=== PATIENT | male | born 1940 | race Caucasian/White ===

== ENCOUNTER 2018-07-22 17:57 | Observation (INO) | payer OTHER ==
[2018-07-22 18:40] LABS: Absolute Lymphocytes (CBC) 0.7 K/uL (0.7-4.9); Absolute Monocytes 1.1 K/uL (0.1-1.3); Absolute Neutrophil 9.1 K/uL (1.8-8.0); Basophils % 0.5 % (0-1.3); Eosinophils % 1.3 % (0-4.4); Hematocrit 56.2 % (39.6-49.0); MPV 9.8 fL (7.6-11.3); Monocytes % 9.5 % (3.3-12.3); RBC Red Blood Cell Count 5.76 M/uL (4.33-5.43)
[2018-07-22 19:15] LABS: Albumin 3.7 g/dL (3.4-5.0); Bilirubin Direct 0.3 mg/dL (0-0.2); Potassium 3.7 mmol/L (3.5-5.1)
[2018-07-22] MEDS ORDERED: MORPHINE 4 MG/ML SYR ONE (19:40)
[2018-07-22] MEDS ORDERED: ONDANSETRON 4 MG/2 ML VIAL ONE (19:41)
[2018-07-22] MEDS ORDERED: NA CHLORIDE 0.9% 500 ML ONE (19:41)
[2018-07-22 22:52] LABS: Protime INR 2.66
--- NOTE | 2018-07-22 23:04 | ER ---
Nurse's Notes [facility] Name: Cristian Le Age: 77 yrs Sex: Male : 1940 Arrival Date: 07/22/2018 Time: 18:02 Bed 17 Private MD: Diagnosis: Acute appendicitis Presentation: 07/22 18:13 Presenting complaint: Patient states: Sent by PCP to be evaluated for appendicitis. aj Care prior to arrival: None. 18:13 Method Of Arrival: Ambulatory aj 18:13 Acuity: LUANN 3 aj 18:30 Transition of care: patient was not received from another setting of care. Onset of sv symptoms was July 20, 2018. Risk Assessment: Do you want to hurt yourself or someone else? Patient reports no desire to harm self or others. Initial Sepsis Screen: Does the patient meet any 2 criteria? No. Patient's initial sepsis screen is negative. Does the patient have a suspected source of infection? No. Patient's initial sepsis screen is negative. Triage Assessment: 18:14 General: Appears in no apparent distress. comfortable, Behavior is calm, cooperative, aj appropriate for age. Pain: Complains of pain in right lower quadrant. Neuro: Level of Consciousness is awake, alert, obeys commands, Oriented to person, place, time, situation, Appropriate for age. Respiratory: Airway is patent Respiratory effort is even, unlabored, Respiratory pattern is regular, symmetrical. GI: Reports lower abdominal pain. Derm: Skin is intact, is healthy with good turgor, Skin is pink, warm \T\ dry. normal. Historical: - Allergies: 18:14 Tape; aj - Home Meds: 18:56 aspirin 325 mg Oral tab 1 tab once daily [Active]; warfarin 7.5 mg Oral tab 1 tab once sv daily [Active]; simvastatin 20 mg Oral tab 1 tab once daily [Active]; benazepril-hydrochlorothiazide 20-12.5 mg oral tab 1 tab once daily [Active]; digoxin 250 mcg Oral tab 1 tab once daily [Active]; carvedilol 25 mg oral tab 1 tab 2 times per day [Active]; furosemide 40 mg Oral tab 1 tab 2 times per day [Active]; testosterone 1cc twice monthly [Active]; Flonase 50 mcg/actuation Nasal spsn 2 sprays once daily [Active]; Albuterol Inhl [Active]; finasteride 5 mg oral tab 1 tab once daily [Active]; tamsulosin 0.4 mg oral cp24 1 cap once daily [Active]; Osteo Bi-Flex oral oral daily [Active]; Stress B-Complex 500-400-23.9-3 zp-ubm-se-mg oral tab daily [Active]; fish,flax, borage 1 cap BID [Active]; multivitamin oral oral daily [Active]; Vitamin D 2000 mg daily Oral [Active]; Vitamin C 1,000 mg Oral tab twice a day [Active]; Probiotic oral oral daily [Active]; Co Q-10 oral oral daily [Active]; - Immunization history:: Adult Immunizations up to date. - Social history:: Smoking status: Patient/guardian denies using tobacco. - Ebola Screening: : No symptoms or risks identified at this time. Screenin:30 Abuse screen: Denies threats or abuse. Denies injuries from another. Nutritional sv screening: No deficits noted. Tuberculosis screening: No symptoms or risk factors identified. Fall Risk None identified. Assessment: 18:30 General: Appears in no apparent distress. uncomfortable, well developed, Behavior is sv calm, cooperative, appropriate for age. Pain: Complains of pain in right lower quadrant Pain currently is 6 out of 10 on a pain scale. Neuro: Level of Consciousness is awake, alert, obeys commands, Oriented to person, place, time, situation, Moves all extremities. Full function Gait is steady, Speech is normal. Respiratory: Respiratory effort is even, unlabored, Respiratory pattern is regular, symmetrical. GI: Abdomen is flat, Bowel sounds present X 4 quads. Abd is soft X 4 quads Abdomen is tender to palpation in right lower quadrant Reports diarrhea. Derm: Skin is pink, warm \T\ dry. Musculoskeletal: Range of motion: intact in all extremities. 19:15 Reassessment: Patient appears in no apparent distress at this time. Patient and/or cc3 family updated on plan of care and expected duration. Pain level reassessed. Patient is alert, oriented x 3, equal unlabored respirations, skin warm/dry/pink. Received this male patient from morning shift CAM Kirk as a case of abdominal pain, with IV cannula gauge 20 at the right ACV saline locked. Still for CT scan abdomen. 20:45 Reassessment: Patient appears in no apparent distress at this time. Patient and/or cc3 family updated on plan of care and expected duration. Pain level reassessed. Patient is alert, oriented x 3, equal unlabored respirations, skin warm/dry/pink. 21:11 Reassessment: Patient appears in no apparent distress at this time. Patient and/or cc3 family updated on plan of care and expected duration. Pain level reassessed. Patient is alert, oriented x 3, equal unlabored respirations, skin warm/dry/pink. animal care technician came and took the patient by wheelchair to CT scan department for procedure. 21:30 Reassessment: Patient appears in no apparent distress at this time. Patient and/or cc3 family updated on plan of care and expected duration. Pain level reassessed. Patient is alert, oriented x 3, equal unlabored respirations, skin warm/dry/pink. Patient came back from CT scan department, awaiting result. Patient denies pain at this time. Patient states symptoms have improved. 22:35 Reassessment: Patient appears in no apparent distress at this time. Patient and/or cc3 family updated on plan of care and expected duration. Pain level reassessed. Patient is alert, oriented x 3, equal unlabored respirations, skin warm/dry/pink. Dr. Montague at bedside assessing the patient. 23:15 Reassessment: Patient appears in no apparent distress at this time. Patient and/or cc3 family updated on plan of care and expected duration. Pain level reassessed. Patient is alert, oriented x 3, equal unlabored respirations, skin warm/dry/pink. 07/23 00:15 Reassessment: Patient appears in no apparent distress at this time. Patient and/or cc3 family updated on plan of care and expected duration. Pain level reassessed. Patient is alert, oriented x 3, equal unlabored respirations, skin warm/dry/pink. Patient for direct OR admission. OR nurse Simms came and report handed over to her for continuity of care and management. Patient left ER vitally stable by stretcher escorted by OR nurse Simms and patient's family. Patient denies pain at this time. Patient states symptoms have improved. Vital Signs: 07/22 18:14 BP 127 / 66; Pulse 81; Resp 19; Temp 98.2; Pulse Ox 95% on R/A; Weight 118.84 kg; aj Height 6 ft. 3 in. (190.50 cm); 19:40 BP 121 / 55; Pulse 72; Resp 17 S; Temp 99.6(O); Pulse Ox 94% on R/A; cc3 20:15 BP 154 / 98; Pulse 77; Resp 16 S; Pulse Ox 96% on R/A; cc3 21:10 BP 157 / 81; Pulse 65; Resp 17 S; Pulse Ox 98% on R/A; cc3 22:06 BP 153 / 93; Pulse 69; Resp 18 S; Pulse Ox 97% on 1 lpm NC; cc3 23:30 BP 137 / 80; Pulse 69; Resp 18 S; Pulse Ox 96% on 1 lpm NC; cc3 07/23 00:00 BP 129 / 81; Pulse 62; Resp 17 S; Pulse Ox 96% on 1 lpm NC; cc3 07/22 18:14 Body Mass Index 32.75 (118.84 kg, 190.50 cm) aj ED Course: 07/22 18:02 Patient arrived in ED. tw3 18:13 Triage completed. aj 18:14 Arm band placed on left wrist. Patient placed in an exam room. aj 18:17 Yelena Hernandez, RN is Primary Nurse. sv 18:24 Hiwot Post [facility]C [facility]. kb 18:24 Isak Mckeon MD is Attending Physician. kb 18:30 Patient has correct armband on for positive identification. Placed in gown. Bed in low sv position. Call light in reach. Adult w/ patient. Door closed. Warm blanket given. Pillow given. Head of bed elevated. 18:30 Initial lab(s) drawn, by co, sent to lab. Inserted saline lock: 20 gauge in right sv antecubital area, using aseptic technique. Blood collected. Flushed right antecubital with 5 ml normal saline. 18:41 Basic Metabolic Panel Sent. sv 18:43 Awaiting lab results, Awaiting CT Scan. sv 19:00 Report given to Kaitlin LEVY. sv 19:33 Primary Nurse role handed off by Yelena Hernandez, RN sv 19:48 Kaitlin Jean Baptiste is Primary Nurse. cc3 21:47 CT Abd/Pelvis - PO and IV Contrast In Process Unspecified. EDMS 23:03 Eddi, Bong, MD is Hospitalizing Provider. kb 23:16 Chest Single View XRAY In Process Unspecified. EDMS 07/23 00:03 X-ray completed. Patient tolerated procedure well. kw 00:15 No provider procedures requiring assistance completed. Patient admitted, IV remains in cc3 place. Administered Medications: 07/22 19:40 Drug: NS 0.9% 500 ml Route: IV; Rate: bolus; Site: right antecubital; cc3 07/23 00:00 Follow up: Response: No adverse reaction; IV Status: Infusion continued upon admission; cc3 IV Intake: 400ml ; Patient's requested to give the IV fluids slower 07/22 19:41 Drug: morphine 4 mg Route: IVP; Site: right antecubital; cc3 20:00 Follow up: Response: No adverse reaction; Pain is decreased cc3 19:45 Drug: Zofran 4 mg Route: IVP; Site: right antecubital; cc3 20:00 Follow up: Response: No adverse reaction; Nausea is decreased cc3 07/23 00:00 Drug: Mefoxin 2 grams Route: IVPB; Infused Over: 30 mins; Site: right antecubital; cc3 00:05 Follow up: Response: No adverse reaction; IV Status: Infusion continued upon admission cc3 Intake: 07/22 18:57 PO: 500ml (Contrast); Total: 500ml. sv 07/23 00:00 IV: 400ml; Total: 900ml. cc3 06 18:57 Called and informed Concepcion in CT pt finished contrast. sv Outcome: 23:03 Discharge ordered by . kb 23:03 Decision to Hospitalize by Provider. kb 07/23 00:15 Patient left the ED. cc3 00:15 Admitted to OR accompanied by nurse, family with patient, via stretcher, with chart, cc3 Report called to OR nurse Demi 00:15 Condition: stable 00:15 Instructed on the need for admit, Demonstrated understanding of instructions. Signatures: Dispatcher [employer] EDMS Hiwot Post, YASH WALTER-Yelena Koenig RN Chikis Estes RN RN aj Whitley, Kimberlee kw Wade, Tia 3 Kaitlin Jean Baptiste cc3 Corrections: (The following items were deleted from the chart) 01:16 0610 22:30 Reassessment: Patient appears in no apparent distress at this time. Patient cc3 and/or family updated on plan of care and expected duration. Pain level reassessed. Patient is alert, oriented x 3, equal unlabored respirations, skin warm/dry/pink. Dr. Montague at bedside assessing the patient. cc3
--- NOTE | 2018-07-22 23:04 | EDPHYS ---
Physician Documentation [facility] Name: Cristian eL Age: 77 yrs Sex: Male : 1940 Arrival Date: 07/22/2018 Time: 18:02 Bed 17 Private MD: ED Physician Isak Mckeon HPI: 07/22 18:52 This 77 yrs old Male presents to ER via Ambulatory with complaints of kb Abdominal Pain. 18:52 The patient presents with abdominal pain right lower quadrant. Onset: The kb symptoms/episode began/occurred 3 day(s) ago. The symptoms do not radiate. Associated signs and symptoms: Pertinent positives: diarrhea, nausea, Pertinent negatives: anorexia, blood in stools, chest pain, constipation, dysuria, fever, headache, hematuria, palpitations, shortness of breath, testicular pain, vomiting, vomiting blood. The symptoms are described as constant. Modifying factors: The symptoms are alleviated by nothing, the symptoms are aggravated by pressure. Severity of pain: At its worst the pain was moderate in the emergency department the pain is unchanged. The patient has not experienced similar symptoms in the past. The patient has been recently seen by a physician: the patient's primary care provider, earlier today, with similar presenting complaints, and was sent to the [facility] Emergency Department for further evaluation. Pt reports abd pain that started on Sunday to center of abd. STates it gradually moved into RLQ and has been constant. Went to PCP today and was sent to ER . Historical: - Allergies: 18:14 Tape; aj - Home Meds: 18:56 aspirin 325 mg Oral tab 1 tab once daily [Active]; warfarin 7.5 mg Oral tab 1 tab once sv daily [Active]; simvastatin 20 mg Oral tab 1 tab once daily [Active]; benazepril-hydrochlorothiazide 20-12.5 mg oral tab 1 tab once daily [Active]; digoxin 250 mcg Oral tab 1 tab once daily [Active]; carvedilol 25 mg oral tab 1 tab 2 times per day [Active]; furosemide 40 mg Oral tab 1 tab 2 times per day [Active]; testosterone 1cc twice monthly [Active]; Flonase 50 mcg/actuation Nasal spsn 2 sprays once daily [Active]; Albuterol Inhl [Active]; finasteride 5 mg oral tab 1 tab once daily [Active]; tamsulosin 0.4 mg oral cp24 1 cap once daily [Active]; Osteo Bi-Flex oral oral daily [Active]; Stress B-Complex 500-400-23.9-3 uz-zwu-jt-mg oral tab daily [Active]; fish,flax, borage 1 cap BID [Active]; multivitamin oral oral daily [Active]; Vitamin D 2000 mg daily Oral [Active]; Vitamin C 1,000 mg Oral tab twice a day [Active]; Probiotic oral oral daily [Active]; Co Q-10 oral oral daily [Active]; - Immunization history:: Adult Immunizations up to date. - Social history:: Smoking status: Patient/guardian denies using tobacco. - Ebola Screening: : No symptoms or risks identified at this time. ROS: 18:51 Constitutional: Negative for fever, chills, and weight loss, ENT: Negative for injury, kb pain, and discharge, Neck: Negative for injury, pain, and swelling, Cardiovascular: Negative for chest pain, palpitations, and edema, Respiratory: Negative for shortness of breath, cough, wheezing, and pleuritic chest pain, Back: Negative for injury and pain, : Negative for injury, bleeding, discharge, and swelling, MS/Extremity: Negative for injury and deformity, Skin: Negative for injury, rash, and discoloration, Neuro: Negative for headache, weakness, numbness, tingling, and seizure. 18:51 Abdomen/GI: Positive for abdominal pain, nausea, diarrhea, Negative for vomiting, constipation, abdominal cramps, abdominal distension. Exam: 18:51 Constitutional: This is a well developed, well nourished patient who is awake, alert, kb and in no acute distress. Head/Face: Normocephalic, atraumatic. Chest/axilla: Normal chest wall appearance and motion. Nontender with no deformity. No lesions are appreciated. Cardiovascular: Regular rate and rhythm with a normal S1 and S2. No gallops, murmurs, or rubs. Normal PMI, no JVD. No pulse deficits. Respiratory: Lungs have equal breath sounds bilaterally, clear to auscultation and percussion. No rales, rhonchi or wheezes noted. No increased work of breathing, no retractions or nasal flaring. Back: No spinal tenderness. No costovertebral tenderness. Full range of motion. Skin: Warm, dry with normal turgor. Normal color with no rashes, no lesions, and no evidence of cellulitis. MS/ Extremity: Pulses equal, no cyanosis. Neurovascular intact. Full, normal range of motion. Neuro: Awake and alert, GCS 15, oriented to person, place, time, and situation. Cranial nerves II-XII grossly intact. Motor strength 5/5 in all extremities. Sensory grossly intact. Cerebellar exam normal. Normal gait. 18:51 Abdomen/GI: Inspection: abdomen appears normal, Bowel sounds: normal, in all quadrants, Palpation: soft, in all quadrants, moderate abdominal tenderness, in the right lower quadrant. Vital Signs: 18:14 BP 127 / 66; Pulse 81; Resp 19; Temp 98.2; Pulse Ox 95% on R/A; Weight 118.84 kg; aj Height 6 ft. 3 in. (190.50 cm); 19:40 BP 121 / 55; Pulse 72; Resp 17 S; Temp 99.6(O); Pulse Ox 94% on R/A; cc3 20:15 BP 154 / 98; Pulse 77; Resp 16 S; Pulse Ox 96% on R/A; cc3 21:10 BP 157 / 81; Pulse 65; Resp 17 S; Pulse Ox 98% on R/A; cc3 22:06 BP 153 / 93; Pulse 69; Resp 18 S; Pulse Ox 97% on 1 lpm NC; cc3 23:30 BP 137 / 80; Pulse 69; Resp 18 S; Pulse Ox 96% on 1 lpm NC; cc3 07/23 00:00 BP 129 / 81; Pulse 62; Resp 17 S; Pulse Ox 96% on 1 lpm NC; cc3 07/22 18:14 Body Mass Index 32.75 (118.84 kg, 190.50 cm) aj MDM: 07/22 18:24 Patient medically screened. kb 18:51 Data reviewed: vital signs, nurses notes. Data interpreted: Pulse oximetry: on room air kb is 95 %. Interpretation: normal. 22:16 Counseling: I had a detailed discussion with the patient and/or guardian regarding: the kb historical points, exam findings, and any diagnostic results supporting the discharge/admit diagnosis, lab results, radiology results, the need for further work-up and treatment in the hospital. Physician consultation: Bong Montague MD was contacted at 22:16, regarding admission, to the medical/surgical unit. patient's condition, and will see patient in ED, shortly. 23:01 Physician consultation: Bong Montague MD in the emergency department to see patient at kb 23:02. ED course: Dr Montague here to see pt. Will take to surgery to appendectomy now. 07/22 18:17 Order name: Basic Metabolic Panel 07/22 18:17 Order name: CBC with Diff; Complete Time: 18:52 sv 07/22 18:17 Order name: Creatinine for Radiology; Complete Time: 19:20 sv 07/22 18:17 Order name: Hepatic Function; Complete Time: 19:20 sv 07/22 18:17 Order name: Lipase; Complete Time: 19:20 sv 07/22 18:20 Order name: Basic Metabolic Panel; Complete Time: 19:20 EDMS 07/22 18:32 Order name: CT Abd/Pelvis - PO and IV Contrast 07/22 22:21 Order name: PT-INR; Complete Time: 22:55 07/22 22:21 Order name: Ptt, Activated; Complete Time: 22:55 07/22 22:21 Order name: Chest Single View XRAY 07/22 18:17 Order name: IV Saline Lock; Complete Time: 18:41 sv 07/22 18:17 Order name: Labs collected and sent; Complete Time: 18:41 07/22 22:21 Order name: EKG; Complete Time: 22:24 fc 07/22 22:21 Order name: EKG - Nurse/Tech; Complete Time: 22:40 fc Administered Medications: 19:40 Drug: NS 0.9% 500 ml Route: IV; Rate: bolus; Site: right antecubital; cc3 07/23 00:00 Follow up: Response: No adverse reaction; IV Status: Infusion continued upon admission; cc3 IV Intake: 400ml ; Patient's requested to give the IV fluids slower 07/22 19:41 Drug: morphine 4 mg Route: IVP; Site: right antecubital; cc3 20:00 Follow up: Response: No adverse reaction; Pain is decreased cc3 19:45 Drug: Zofran 4 mg Route: IVP; Site: right antecubital; cc3 20:00 Follow up: Response: No adverse reaction; Nausea is decreased cc3 07/23 00:00 Drug: Mefoxin 2 grams Route: IVPB; Infused Over: 30 mins; Site: right antecubital; cc3 00:05 Follow up: Response: No adverse reaction; IV Status: Infusion continued upon admission cc3 Disposition: 07/22/18 23:03 Hospitalization ordered by Bong Montague for Observation. Preliminary diagnosis is Acute appendicitis. - Bed requested for Telemetry/MedSurg (observation). - Status is Observation. cc3 - Condition is Stable. - Problem is new. - Symptoms are unchanged. UTI on Admission? No Signatures: Dispatcher [employer] EDMS Hiwot Post, SABA-Meliza WALTER-Yelena Koenig, RN Grecia Chavez RN Chikis Jon RN Sondra Lyons, RN June Morgan RN RN lp1 Kaitlin Jean Baptiste cc3 Corrections: (The following items were deleted from the chart) 07/22 23:03 23:03 07/22/2018 23:03 Discharged to Home. Impression: Acute appendicitis. Condition is kb Stable. Forms are Medication Reconciliation Form, Thank You Letter, Antibiotic Education, Prescription Opioid Use. Follow up: Emergency Department; When: As needed; Reason: Worsening of condition. Follow up: Private Physician; When: 2 - 3 days; Reason: Recheck today's complaints, Continuance of care, Re-evaluation by your physician. kb 23:31 23:03 Hospitalization Ordered by Bong Montague MD for Observation. Preliminary mw diagnosis is Acute appendicitis. Bed requested for Telemetry/MedSurg (observation). Status is Observation. Condition is Stable. Problem is new. Symptoms are unchanged. UTI on Admission? No. kb 23:42 23:31 07/22/2018 23:03 Hospitalization Ordered by Bong Montague MD for Observation. lp1 Preliminary diagnosis is Acute appendicitis. Bed requested for Telemetry/MedSurg (observation). Status is Observation. Condition is Stable. Problem is new. Symptoms are unchanged. UTI on Admission? No. mw 07/23 00:15 07/22 23:42 07/22/2018 23:03 Hospitalization Ordered by Bong Montague MD for cc3 Observation. Preliminary diagnosis is Acute appendicitis. Bed requested for Telemetry/MedSurg (observation). Status is Observation. Condition is Stable. Problem is new. Symptoms are unchanged. UTI on Admission? No. lp1
[2018-07-23] MEDS ORDERED: CEFOXITIN SODIUM 1 GM/VIAL ONE ×2 (00:06→06:28)
[2018-07-23] MEDS ORDERED: NA CHLORIDE 0.9% 100 ML IV ONE ×2 (00:06→06:28)
--- NOTE | 2018-07-23 00:27 | P.HP ---
Date of Service: 07/23/18 PC: This 77-year-old male presents emergency room with severe right lower quadrant abdominal pain for diagnosis and treatment. HPC: Patient has been sick for the last 72 hr. Had felt on well originally went to some cramping abdominal pain. Pain is intensified in now located in the right lower quadrant. PMH: Atrial fibrillation, is CAD PSHx: Previous bilateral inguinal hernia repair with mesh SOC: No known allergy, takes Coumadin SYS REVIEW: No cough, wheeze, shortness of breath. No chest pain or palpitations. Denies any urinary complaints. Saw his senior pharmacy technician recently and there were no changes in his medical management. O/E awake alert uncomfortable HEENT: Within normal limits Chest: Chest movement equal bilaterally ABD: Tender with guarding in the right lower quadrant LOCO: Intact DATA: Elevated white cell count, CT scan supports clinical diagnosis of acute abdomen with appendicitis IMPRESSION: Acute abdomen with appendicitis PLAN: I want him to the operating room for laparoscopic possible open appendectomy. The risks of this procedure have been discussed. The possibility of bleeding, infection, and injury to bowel and blood vessels has been described. The possible need for an open and/or further surgeries and procedures was discussed. He understands and wants us to proceed.
[2018-07-23] MEDS ORDERED: GLYCOPYRROLATE 0.2 MG/ML SYR ONE (00:38)
[2018-07-23] MEDS ORDERED: FENTANYL CITR 100 MCG/2 ML ONE (00:38)
[2018-07-23] MEDS ORDERED: PROPOFOL 200 MG/20 ML VIAL IV ONE (00:38)
[2018-07-23] MEDS ORDERED: MIDAZOLAM HCL 2 MG/2 ML INJ ONE (00:38)
[2018-07-23] MEDS ORDERED: ONDANSETRON 4 MG/2 ML VIAL ONE (00:39)
[2018-07-23] MEDS ORDERED: NEOSTIGMINE 1 MG/ML -10 ML VIAL ONE (00:39)
[2018-07-23] MEDS ORDERED: MORPHINE 10 MG/ML VIAL ONE (00:40)
[2018-07-23] MEDS ORDERED: LIDOCAINE 2% MPF 5 ML VIAL ONE (00:40)
[2018-07-23] MEDS ORDERED: Ringers Lactate 1,000 ML IV ONE (00:44)
[2018-07-23] MEDS ORDERED: ROCURONIUM 50 MG/5 ML VIAL IV ONE (00:45)
--- NOTE | 2018-07-23 01:29 | P.OP ---
Preoperative diagnosis: Acute abdomen with appendicitis Postoperative diagnosis: The same Primary procedure: Laparoscopic appendectomy Anesthesia: General Estimated blood loss: Less than 10 cc Specimen: 1 appendix sent for histopathology Operative Technique: The patient brought to the operating room and placed supine on the table. After the induction of adequate general endotracheal anesthesia, the area of the abdomen was prepped with a DuraPrep solution, and he was draped in usual aseptic manner. A subumbilical incision was made. This brought down through the skin and subcutaneous tissue Visiport was now used to enter the peritoneal cavity and created pneumoperitoneum to approximately 12 mm of mercury. Under direct vision a 5 mm trocars placed in the lower midline, and another in the right upper quadrant. We were now able to visualize right lower quadrant. We could see an acutely inflamed appendix adherent to the sidewall of the abdomen just above the true pelvis. These bowel adhesions were taken down using blunt sharp dissection. There was noted to be some exudate on the appendix but no evidence of rupture. The base of the appendix was identified. The mesentery was cleared this area an opening was made just at the junction between the appendix and the cecum. The linear Stapler was now introduced into the peritoneal cavity placed across the base the appendix and fired. A vascular reload was used to take down the appendiceal artery and surrounding structures. The specimen having mean detached was now placed into an Endo-Catch and brought out through the umbilical trocar site. Inspection of the abdomen was made. There were some adhesions around the cecum to the anterior abdominal. These adhesions were taken down using the scissors. We also inspected both groins we could see were he had had previous inguinal hernia repairs and these were intact. At this point the umbilical trocar site was approximated using 2 absorbable sutures placed using the Endo Close. The pneumoperitoneum was collapsed, the trocars removed, and victor manuel applied to the skin. At the end of the procedure the patient was in a stable condition when sent to the recovery room. Needle sponge instrument count were correct. No drains were placed. Estimated blood loss was less than 10 cc. Complications: None Transferred to: Recovery Room Condition: Good
[2018-07-23] MEDS ORDERED: CEFOXITIN SODIUM 1 GM/VIAL IVPB SCH (01:49)
[2018-07-23] MEDS ORDERED: MORPHINE 4 MG/ML SYR IV PRN ×2 (01:49)
[2018-07-23] MEDS ORDERED: ACETAMINOPHEN 500 MG TAB PO PRN (01:49)
[2018-07-23] MEDS ORDERED: ONDANSETRON 4 MG/2 ML VIAL IV PRN ×2 (01:49)
[2018-07-23] MEDS: Ringers Lactate 1,000 ML IV SCH ×2 (02:39→11:23)
[2018-07-23] MEDS ORDERED: CEFOXITIN 1 GM in NA CHLORIDE 0.9% 100 ML IVPB SCH (06:00)
[2018-07-23 06:09] LABS: Absolute Lymphocytes (CBC) 0.7 K/uL (0.7-4.9); Absolute Neutrophil 7.3 K/uL (1.8-8.0); Basophils % 0.4 % (0-1.3); Eosinophils % 1.1 % (0-4.4); Hematocrit 52.5 % (39.6-49.0); Lymphocytes % 7.7 % (15.3-44.8); MPV 9.8 fL (7.6-11.3); Monocytes % 11.3 % (3.3-12.3); RBC Red Blood Cell Count 5.38 M/uL (4.33-5.43)
[2018-07-23 06:16] LABS: Potassium 3.6 mmol/L (3.5-5.1)
--- NOTE | 2018-07-23 08:11 | RAD REPORT ---
EXAM DESCRIPTION: Susanat Single View07/22/2018 11:15 pm CLINICAL HISTORY: Abdominal pain COMPARISON: 2010 FINDINGS: Borderline mild interstitial pulmonary edema The heart is moderately enlarged. Pacemaker leads are in place.
[2018-07-23] MEDS: HYDROCODONE/APAP 7.5/325 MG TAB PO PRN ×2 (08:54→16:27)
[2018-07-23 09:46] LABS: Urine Appearance CLEAR; Urine Bilirubin NEGATIVE (NEG); Urine Blood NEGATIVE (NEG); Urine Color YELLOW; Urine Glucose NEGATIVE (NEG); Urine Protein 1+ (NEG); Urine Specific Gravity >=1.030 (1.005-1.030); Urine Urobilinogen 0.2 mg/dL (0.2-1.0); Urine pH 5.5 (5.0-7.0)
[2018-07-23 09:53] LABS: Urine Microscopic Reflex ORDER UMIC
[2018-07-23 10:46] LABS: Urine Bacteria <20 /HPF (NONE SEEN); Urine Culture Reflex Order NOT NEEDED; Urine RBC NONE SEEN /HPF (NONE SEEN)
--- NOTE | 2018-07-23 11:01 | RAD REPORT ---
EXAM DESCRIPTION: CT - Abdomen Pelvis W Contrast - 07/23/2018 1:16 am CLINICAL HISTORY: 77 years Male, r/o appy;Abd pain COMPARISON: None. TECHNIQUE: 5 mm arterial phase axial images of the abdomen were obtained. 5 mm venous phase axial images of the abdomen and pelvis were obtained with oral and intravenous cont rast. 2 mm coronal and sagittal reformatted images were obtained. This exam was performed according to our departmental dose-optimization program, which includes autom ated exposure control, adjustment of the mA and/or kV according to patient size and/or use of iterati ve reconstruction technique. INTRAVENOUS CONTRAST: Not documented. Please refer to medical record. ORAL CONTRAST: Not documented. Please refer to medical record. FINDINGS: Lung bases: There are no active infiltrates. There are calcified granulomas in the right l werner base. There is mild cardiomegaly.. Liver: There are granulomatous calcifications.. Spleen: There are granulomatous calcifications.. Pancreas: Normal. Gallbladder: Normal. Right adrenal gland: Normal. Left adrenal gland: Normal. Right kidney: There are 2 small cortical cysts. The largest cyst is in the upper pole measuring 0.5 x 0.5 cm.. Left kidney: There are 3 cortical cysts. The largest cyst is in the lower pole and measures 1.7 x 1.1 cm. 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 Bowel survey: There is evidence of acute appendicitis. The repeat appendix is distended and inflamed measuring 1.5 cm in transverse diameter. There is moderately severe periappendiceal edema. There is n o abscess. Urinary bladder: Normal. Prostate gland: The prostate gland is moderately enlarged measuring 6.5 x 6.9 x 6.3 cm for volume of 147 mL. Peritoneal cavity: Normal. Mesentery structures: Normal. Abdominal wall: There is a small umbilical hernia containing fat.. Bony structures: No suspicious lesions. 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 IMPRESSION: 1. Acute appendicitis. NOTIFICATION: Results were discussed with Dr. Post at 10:05 PM. Electronically signed by: Varinder Bond MD 07/22/2018 10:06 PM CDT Due to temporary technical issues with the PACS/Fluency reporting system, reports are being signed by the in house radiologist as a courtesy to ensure prompt reporting. The interpreting radiologist is f ully responsible for the content of the report.
[2018-07-23] MEDS ORDERED: CEFOXITIN/SWI 1gm 1 GM/10 ML SYR IV SCH (12:00)
--- NOTE | 2018-07-23 12:05 | EKG ---
Test Date: 2018-07-22 Test Time: 22:36:36 Backup Engineer: BYRON MEASUREMENT RESULTS: Intervals: Rate: 62 ND: QRSD: 116 QT: 364 QTc: 369 [place]: P: ND: QRS: 60 T: -70 INTERPRETIVE STATEMENTS: Demand pacemaker, interpretation is based on intrinsic rhythm Atrial fibrillation with premature ventricular or aberrantly conducted complexes Incomplete left bundle branch block ST & T wave abnormality, consider inferior ischemia or digitalis effect ST & T wave abnormality, consider anterolateral ischemia or digitalis effect Abnormal ECG No previous ECG available for comparison Electronically Signed On 07-23-18 12:02:32 CDT by Henry Hanson
== END 2018-07-23 16:37 | disposition home or self-care (01) ==
LOC: ER 17:57 → 2ND 07-23 00:29
PROVIDERS: ADMIT Surgery; ATTEND Surgery
PROC: 0DTJ4ZZ Resection of Appendix, Percutaneous Endoscopic Approach (ICD-10-PCS; principal; 2018-07-23)
DX: K35.80 Unspecified acute appendicitis (principal); I48.91 Unspecified atrial fibrillation; I49.3 Ventricular premature depolarization; I44.7 Left bundle-branch block, unspecified; I25.10 Atherosclerotic heart disease of native coronary artery without angina pectoris; I51.7 Cardiomegaly; R94.31 Abnormal electrocardiogram [ECG] [EKG]; Z95.0 Presence of cardiac pacemaker; Z79.01 Long term (current) use of anticoagulants; Z79.82 Long term (current) use of aspirin; Z79.899 Other long term (current) drug therapy
CPT/HCPCS: 44970; 96361; 93005; 85025 ×2; 80048 ×2; 36415; 85610; 82962; 80076; 88304; 85730; 83690; 74177; 71045; 96375; 96374; 99285; Q9967; J2704; J2710; J2250; J3010; J0694; J2405 ×2; G0378 ×2; 81003; 81015